=== PATIENT | female | born 1985 | race Caucasian/White ===

== ENCOUNTER 2023-10-23 06:32 | Outpatient (RCR) | payer BC, SELFPAY | END 2023-10-23 23:59 | disposition home or self-care (01) | LOC: RPT 06:32 | PROVIDERS: ATTENDING PHYSICIAN Surgery; FAMILY PHYSICIAN Nurse Practitioner Family | DX: K59.00 Constipation, unspecified (principal); N81.10 Cystocele, unspecified; N81.6 Rectocele; M62.89 Other specified disorders of muscle; Z73.6 Limitation of activities due to disability | CPT/HCPCS: 97163; 97530 ==

== ENCOUNTER 2023-11-23 11:56 | Outpatient (RCR) | payer BC, SELFPAY | END 2023-11-23 23:59 | disposition home or self-care (01) | LOC: RPT 11:56 | PROVIDERS: ATTENDING PHYSICIAN Surgery; FAMILY PHYSICIAN Nurse Practitioner Family | DX: K59.00 Constipation, unspecified (principal); N81.6 Rectocele; N81.10 Cystocele, unspecified; M62.89 Other specified disorders of muscle; Z73.6 Limitation of activities due to disability | CPT/HCPCS: 97112; 97140; 97530 ==

== ENCOUNTER → 2023-11-30 11:37 | Outpatient (REF) | payer BC, SELFPAY | LOC: RAD 11:37 | PROVIDERS: ATTENDING PHYSICIAN Surgery; FAMILY PHYSICIAN Nurse Practitioner Family | DX: K59.01 Slow transit constipation (principal) | CPT/HCPCS: 74018 ==

== ENCOUNTER 2023-12-18 14:01 | Outpatient (RCR) | payer BC, SELFPAY | END 2023-12-18 23:59 | disposition home or self-care (01) | LOC: RPT 14:01 | PROVIDERS: ATTENDING PHYSICIAN Surgery; FAMILY PHYSICIAN Nurse Practitioner Family | DX: K59.00 Constipation, unspecified (principal); N81.10 Cystocele, unspecified; N81.6 Rectocele; M62.89 Other specified disorders of muscle; Z73.6 Limitation of activities due to disability | CPT/HCPCS: 97110; 97112; 97140; 97530 ==

== ENCOUNTER → 2023-12-25 12:43 | Outpatient (REF) | payer BC, SELFPAY | LOC: RAD 12:43 | PROVIDERS: ATTENDING PHYSICIAN Obstetrics & Gynecology; FAMILY PHYSICIAN Nurse Practitioner Family | DX: N81.2 Incomplete uterovaginal prolapse (principal) | CPT/HCPCS: 76830; 76856 ==

== ENCOUNTER 2024-01-01 10:10 | Inpatient (IN) | payer BC, SELFPAY ==
[2023-12-25 12:41] VITALS: BMI 19.5
[2023-12-25 14:30] LABS: Hematocrit 38.3 % (37.0-47.0); Hemoglobin 12.5 g/dL (12.0-16.0); Mean Corp Hgb Conc. 32.6 g/dL (33.0-37.0); Mean Corpuscular Hgb 31.2 pg (27.0-31.0); Mean Corpuscular Volume 95.5 fL (81.0-99.0); Mean Platelet Volume 11.1 fL (7.4-10.4); Platelet Count 268 10^3/uL (130-400); Red Blood Cell Count 4.01 10^6/uL (4.20-5.40); Red Cell Dist. Width 13.2 % (11.5-14.5); White Blood Cell Count 6.5 10^3/uL (4.8-10.8)
[2023-12-25 15:16] LABS: Blood Urea Nitrogen 9 mg/dl (7-17); Calcium 9.3 mg/dl (8.4-10.2); Carbon Dioxide 27 mmol/L (22-30); Chloride 103 mmol/L (98-107); Estimated Creatinine Clearance 119 ml/min; Glucose 72 mg/dl (70-99); Sodium 141 mmol/L (135-145); eGFR > 60.00
[2023-12-26 10:54] LABS: ALT (SGPT) 28 U/L (0-35); AST (SGOT) 27 U/L (14-36); Albumin 4.8 g/dl (3.5-5.0); Alkaline Phosphatase 61 U/L (38-126); Total Bilirubin 0.4 mg/dl (0.2-1.3); Total Protein 7.3 g/dl (6.3-8.2)
[2024-01-01] VITALS (8 sets, daily range): BP systolic 89–111; BP diastolic 52–68; BMI 19.5; BMI 18.9
[2024-01-01 11:40] LABS: APTT 30.1 Sec (23.4-35.0); INR 1.09
[2024-01-01] MEDS: TYLENOL 1000 MG PO (13:53)
[2024-01-01] MEDS: ENTEREG 12 MG PO (13:53)
[2024-01-01] MEDS: Pyridium 200 MG PO (13:53)
[2024-01-01] MEDS: NORMOSOL-R 1000 IV ×2 (13:53→22:07)
[2024-01-01] MEDS: TRANSDERM-SCOP 1 PATCH TRANSDERM (13:54)
[2024-01-01] MEDS: HEPARIN 5000 UNITS SC (13:56)
--- NOTE | 2024-01-01 19:50 | W.IMMPOSTOP ---
Surgical Immed Post Op Note
-
Primary Surgeon: Braxton Goodrich MD
Pmo Manager: KATARINA Miller
Urogynecologist: Colin Guevara MD
Pre-op Diagnosis: Pelvic floor prolapse/chronic constipation
Post-op Diagnosis: Same
Procedure Performed: Robotic sigmoid resection and ventral rectopexy with mesh (Dr. Goodrich)
Robotic hysterectomy, sacroculpopexy, cystoscopy and posterior repair (Dr. Guevara)
Anesthesia Type: GET
Specimen / Cultures: Sigmoid colon (suture is proximal)
Uterus
Estimated Blood Loss: 30cc
Complications: None
Operative Findings: Pelvic floor prolapse
Redundant sigmoid colon
28mm EEA
Normal leak test
Phasix mesh for both repairs
Normal cystoscopy
Patient's updated.
--- NOTE | 2024-01-01 20:03 | W.SUR.POST ---
Surgical Immediate Post Op
Note
Pre Op Diagnosis: Pelvic organ prolapse
Post Op Diagnosis: Pelvic organ prolapse
Procedure Performed: Robotic total hysterectomy, bilateral salpingecotmy, sacrocolpopexy, posterior colporrhaphy with perineoplasty, cystoscopy
Primary Surgeon: Colin Guevara MD
Anesthesia: General anesthesia with ET tube
Estimated Blood Loss: 30cc
Complications: None
Operative Findings: Advanced stage pelvic organ prolapse
[2024-01-01] MEDS: TYLENOL 650 MG PO (21:56)
--- NOTE | 2024-01-01 22:00 | PTCARENOTE ---
Pt arrived to unit from PACU and is AAOx3, 5/10 pain throughout abdomen. Scheduled Tylenol provided to pt. Graham at bedside; pt and spouse updated on plan of care. BP on admission 93/53, HR 84, pt is AAOx3, drowsy but verbally arousable.
[2024-01-01] MEDS: ZOFRAN 4 MG IV (22:07)
[2024-01-02] VITALS (7 sets, daily range): BP systolic 90–108; BP diastolic 54–71; BMI 18.6
[2024-01-02] MEDS: TYLENOL PO (00:36)
[2024-01-02] MEDS: TORADOL 15 MG IV ×4 (02:44→20:48)
[2024-01-02] MEDS: TYLENOL 650 MG PO ×5 (04:08→20:48)
[2024-01-02] MEDS: NORMOSOL-R 1000 IV (06:16)
--- NOTE | 2024-01-02 07:41 | W.PN.GYN ---
Today's Communication / Plan
-
1. D/c huff catheter
Physician Note
-
Assessment and Plan:
38 yo woman presents for POD 1 s/p Robotic total laparoscopic hysterectomy, bilateral salpingectomy, sacrocolpopexy, posterior colporrhaphy with perineoplasty and cystoscopy and bowel resection with rectopexy (Dr. Goodrich): doing well postop and
meeting postop milestones.
1. Postoperative care
-Vaginal packing removed this morning on rounds
-Huff catheter in place: discussed with bedside RN to remove when patient is ambulatory today
-Diet: per colorectal surgery recommendations
-Ambulate and SCDs for DVT ppx
-CBC and BMP pending
Subjective:
no acute complaints, pain well controlled, denies nausea or vomiting overnight. has not ambulated. denies fevers/chills, nausea/vomiting, chest pain, sob.
Objective:
Intake and Output
12/31/23 01/01/24 01/02/24 01/03/24
06:59 06:59 06:59 06:59
Intake Total 960 / 960
Output Total 850 / 850
Balance 110 / 110
Intake:
Oral fluids 60 / 60
IV fluids (Total) 900 / 900
normosol 100 / 100
Output:
Urine, Huff 850 / 850
Vital Signs
Temp Pulse Resp BP Pulse Ox
98 F 92 14 108/64 97
01/02/24 03:42 01/02/24 03:42 01/02/24 03:42 01/02/24 03:42 01/02/24 03:42
Exam:
Abdomen: soft, nontender, nondistended
: minimal spotting
LE: nontender, no swelling, no erythema
[2024-01-02 08:09] LABS: Blood Urea Nitrogen 10 mg/dl (7-17); Calcium 8.3 mg/dl (8.4-10.2); Carbon Dioxide 19 mmol/L (22-30); Chloride 107 mmol/L (98-107); Estimated Creatinine Clearance 117 ml/min; Glucose 87 mg/dl (70-99); Potassium 4.4 mmol/L (3.5-5.1); Sodium 136 mmol/L (135-145); eGFR > 60.00
[2024-01-02] MEDS: ZOLOFT 200 MG PO (08:36)
[2024-01-02 09:18] LABS: % Basophils 0.1 % (0-2); % Immature Granulocytes 0.4 % (0-0.5); % Lymphocytes 11.8 % (20.5-51.1); % Monocytes 10.8 % (1.7-9.3); % Neutrophils 76.9 % (42.2-75.2); Absolute Lymphocytes 1.3 10^3/uL (1.2-3.4); Absolute Monocytes 1.2 10^3/uL (0.1-0.6); Absolute Neutrophils 8.2 10^3/uL (1.4-6.5); Hematocrit 31.9 % (37.0-47.0); Hemoglobin 10.7 g/dL (12.0-16.0); Mean Corp Hgb Conc. 33.5 g/dL (33.0-37.0); Mean Corpuscular Volume 92.5 fL (81.0-99.0); Mean Platelet Volume 10.8 fL (7.4-10.4); Nucleated Red Blood Cells % 0 %; Platelet Count 226 10^3/uL (130-400); Red Blood Cell Count 3.45 10^6/uL (4.20-5.40); Red Cell Dist. Width 13.2 % (11.5-14.5); White Blood Cell Count 10.6 10^3/uL (4.8-10.8)
[2024-01-02] MEDS: ENTEREG 12 MG PO ×2 (09:36→20:48)
[2024-01-02] MEDS: ZOFRAN 4 MG IV (09:55)
--- NOTE | 2024-01-02 12:15 | W.PN.CRS1 ---
Today's Communication / Plan
-
fulls
lovenox
Assessment/Plan
-
POD#1 Robotic sigmoid resection and ventral rectopexy with mesh, Robotic hysterectomy, sacroculpopexy, cystoscopy and posterior repair
1. Vitals normal. Labs normal.
2. OOB as tolerated.
3. Advance diet to full liquids.
4. OR pathology pending.
5. Start on Lovenox for DVT prophylaxis.
6. OR pathology pending.
7. Await void post huff removal.
8. D/C IVfs when tolerating po.
Subjective Data
Procedure
01/02/2024 -Robotic sigmoid resection and ventral rectopexy with mesh (Dr. Goodrich)
Robotic hysterectomy, sacroculpopexy, cystoscopy and posterior repair (Dr. Guevara)
Subjective Data
Date of Service: January 02, 2024
Patient states she feels well. Her pain is controlled. She has no nausea or vomiting. She plus flatus after she saw Dr. Goodrich this morning. Her Huff was discontinued and she has not urinated yet.
Objective Data
-
Vital Signs
Temp Pulse Resp BP Pulse Ox
98.2 F 90 16 101/66 98
01/02/24 07:20 01/02/24 07:20 01/02/24 07:20 01/02/24 07:20 01/02/24 08:35
Intake & Output
01/01/24 01/02/24 01/03/24
06:59 06:59 06:59
Intake Total 960 / 960
Output Total 850 / 850 600 / 600
Balance 110 / 110 -600 / -600
Intake:
Oral fluids 60 / 60
IV fluids (Total) 900 / 900
normosol 100 / 100
Output:
Urine, Huff 850 / 850 600 / 600
Lab Results
01/02/24 07:05
01/02/24 07:05
Physical Exam
-
General: No Acute Distress and AOx3
Abdomen: Soft, Non Distended and Non Tender
Skin: Warm and Dry
Incision: Clear, Dry, Intact
[2024-01-02] MEDS: NORMOSOL-R IV (13:16)
--- NOTE | 2024-01-02 16:04 | CM ---
Patient seen bedside.
IA
patient lives with spouse and children in a 2 story home.
Independent prior to admission.
Drives.
No home care needs anticipated.
PCP: Dr Aggarwal
Pharmacy [facility]
Plan: home no needs.
[2024-01-02] MEDS: LOVENOX 40 MG SC (17:18)
[2024-01-02] MEDS: FLUSH (NSS) 2 FLUSH IV (20:50)
[2024-01-03] VITALS: BP 95/58
[2024-01-03] MEDS: TYLENOL PO (01:03)
[2024-01-03] MEDS: NORMOSOL-R IV (02:12)
[2024-01-03] MEDS: TORADOL 15 MG IV ×3 (02:18→13:18)
[2024-01-03] MEDS: FLUSH (NSS) 2 FLUSH IV (02:19)
[2024-01-03] MEDS: TYLENOL 650 MG PO ×3 (02:20→13:17)
[2024-01-03 07:50] VITALS: BP 90/57
--- NOTE | 2024-01-03 07:54 | W.PN.GYN ---
Today's Communication / Plan
-
1. continue advancing diet per colorectal surgery
2. possible d/c tomorrow
Physician Note
-
Assessment and Plan:
38 yo woman presents for POD2 s/p Robotic total laparoscopic hysterectomy, bilateral salpingectomy, sacrocolpopexy, posterior colporrhaphy with perineoplasty and cystoscopy and sigmoid resection with rectopexy (Dr. Goodrich): doing well postop and
meeting postop milestones.
1. Postoperative care
-Vaginal packing removed on POD 1
-Normal vaginal bleeding/spotting
-Ordonez catheter removed on POD 1
-Diet: per colorectal surgery recommendations
-Ambulate and SCDs for DVT ppx
-CBC and BMP: WNL on POD 1
-IV is hep locked
Subjective:
no acute complaints, pain well controlled, denies nausea or vomiting overnight. tolerating liquid diet. ambulating in hallway without assistance. voiding normally. denies fevers/chills, nausea/vomiting, chest pain, sob.
Objective:
Intake and Output
01/01/24 01/02/24 01/03/24 01/04/24
06:59 06:59 06:59 06:59
Intake Total 960 / 960 960 / 960
Output Total 850 / 850 1940 / 1940
Balance 110 / 110 -980 / -980
Intake:
Oral fluids 60 / 60 960 / 960
IV fluids (Total) 900 / 900
normosol 100 / 100
Output:
Urine, Ordonez 850 / 850 1200 / 1200
Urine, Voided 740 / 740
Other:
Number of approximated MODERATE 2
amounts of urine
Vital Signs
Temp Pulse Resp BP Pulse Ox
98.1 F 80 16 90/57 100
01/03/24 07:50 01/03/24 07:50 01/03/24 07:50 01/03/24 07:50 01/03/24 07:50
Lab Results
01/02/24 07:05
01/02/24 07:05
Exam
Incisions: clean, dry, intact
: minimal spotting
Lower extrem: nontender, no swelling, no erythema
Abdomen: soft, nontender, nondistended
[2024-01-03] MEDS: ENTEREG 12 MG PO (08:32)
[2024-01-03] MEDS: ZOLOFT 200 MG PO (08:33)
[2024-01-03] MEDS: ZOFRAN 4 MG IV (08:42)
--- NOTE | 2024-01-03 09:08 | W.PN.CRS1 ---
Today's Communication / Plan
-
low residue
possible d/c after lunch
Assessment/Plan
-
POD#2 Robotic sigmoid resection and ventral rectopexy with mesh, Robotic hysterectomy, sacroculpopexy, cystoscopy and posterior repair
1. Vitals normal.
2. OOB as tolerated.
3. Advance diet to low residue
4. OR pathology pending.
5. Lovenox for DVT prophylaxis.
6. OR pathology pending.
7. Okay for discharge after lunch if she tolerates a low residue diet. All discharge instructions discussed with patient. All questions answered. Follow-up in the office with Dr. Goodrich in 2 weeks.
Subjective Data
Procedure
01/02/2024 -Robotic sigmoid resection and ventral rectopexy with mesh (Dr. Goodrich)
Robotic hysterectomy, sacroculpopexy, cystoscopy and posterior repair (Dr. Guevara)
Subjective Data
Date of Service: January 03, 2024
She patient states she feels well. She had a nice night sleep. She has loose stools. She is tolerating food but she is not that hungry. Her pain is well-controlled. She has no complaints.
Objective Data
-
Vital Signs
Temp Pulse Resp BP Pulse Ox
98.1 F 80 16 90/57 100
01/03/24 07:50 01/03/24 07:50 01/03/24 07:50 01/03/24 07:50 01/03/24 07:50
Intake & Output
01/02/24 01/03/24 01/04/24
06:59 06:59 06:59
Intake Total 960 / 960 960 / 960
Output Total 850 / 850 1940 / 1940
Balance 110 / 110 -980 / -980
Intake:
Oral fluids 60 / 60 960 / 960
IV fluids (Total) 900 / 900
normosol 100 / 100
Output:
Urine, Ordonez 850 / 850 1200 / 1200
Urine, Voided 740 / 740
Other:
Number of approximated MODERATE 2
amounts of urine
Lab Results
01/02/24 07:05
01/02/24 07:05
Physical Exam
-
General: No Acute Distress and AOx3
Abdomen: Soft, Non Distended and Non Tender
Skin: Warm and Dry
Incision: Clear, Dry, Intact
--- NOTE | 2024-01-03 12:32 | CM ---
Met with patient and her spouse at the bedside to discuss discharge plan
Plan: discharge to home today; no needs; will transport home
[2024-01-03 13:57] VITALS: BP 96/54
[2024-01-03 14:57] VITALS: BP 96/54
--- NOTE | 2024-01-07 12:23 | W.DCSUMMARY ---
Discharge Summary
Discharge Data
Date of Admission: 01/01/24
Date of Discharge: 01/03/24
-
Pending Results: Yes
Hospital Course
38-year-old female presented for an elective robotic sigmoid resection ventral rectopexy with mesh by Dr. Braxton Goodrich and a robotic hysterectomy, sacroculpopexy, cystoscopy and posterior repair by Dr. Guevara on 01/01/2024. She tolerated the
procedure well. The following day her diet was advanced to full liquids she was started on Lovenox for DVT prophylaxis her Ordonez was discontinued and she voided without difficulty. On postop day 2 she was started on a low residue diet. Her pain
was well-controlled. Started the patient to be discharged to home. All discharge instructions were discussed the patient medications activity levels and wound care. All questions were answered.
Discharge Plan
-
Patient Disposition: Home (Routine Discharge)
Discharge Diagnosis/Procedures: Robotic sigmoid resection and ventral rectopexy with mesh (Dr. Goodrich)
Robotic hysterectomy, sacroculpopexy, cystoscopy and posterior repair (Dr. Guevara)
Diet: Low Residue
Activity: No strenuous activity
Additional Activity: No lifting over 10 pounds.
Driving Restrictions: No driving for 1 week
Bathing Restrictions: OK to Shower
Wound Care: Allow glue to naturally fall off. Do not pick at incisions.
Instructions: Low Fiber Diet
Referrals:
Anthony Goodrich MD [Active] - 01/17/24 9:45 am
Aung Aggarwal CRNP [Family Provider] -
Additional Discharge Medication Instructions: Tylenol or Toradol as needed for pain. Maximum dose of Tylenol is 4000 mg 24 hours. Maximum dose of ibuprofen is 3200 mg 24 hours.
Prescriptions:
New
oxycodone 5 mg tablet
5 mg PO Q6H PRN (Reason: Pain) Qty: 20 0RF
Continued
sertraline 100 mg Tablet
200 mg PO DAILY
ondansetron 4 mg Tablet,Disintegrating
4 mg PO Q6H PRN (Reason: nausea)
Ubrelvy
100 mg PO PRN PRN (Reason: migraines)
ibuprofen 600 MG tablet
200 mg PO Q6HPRN PRN (Reason: moderate pain/cramps)
clonazepam 0.5 mg Tablet
0.5 - 1 mg PO HS
lisdexamfetamine [Vyvanse] 40 mg Capsule
40 mg PO DAILY
Discontinued
Linzess
72 mcg PO PRN PRN (Reason: constipation )
polyethylene glycol 3350 [Miralax] 17 gram Powder In Packet
17 g PO DAILY
metronidazole [Flagyl] 500 mg Tablet
500 mg PO .PERPROTOCOL
neomycin 500 mg Tablet
500 mg PO .PERPROTOCOL
Patient Comments:
took at 1400,1500,and 2200 on 12/31/23
lubiprostone 24 mcg Capsule
24 mcg PO DAILY
Sutab 1.479-0.188- 0.225 gram Tablet
0 tab PO PER PKG DIR
Discharge Orders:
Discharge Patient (As Directed); Ordered 01/03/24
Ordered By: Mayra Gallagher
Discharge Date and Time
Discharge Date/Time: 01/03/24 14:50
Print Language: GREEK
== END 2024-01-03 14:50 | disposition home or self-care (01) | DRG 742 ==
LOC: 4 WEST ACU 10:10
PROVIDERS: ADMITTING PHYSICIAN Obstetrics & Gynecology; ATTENDING PHYSICIAN Surgery; FAMILY PHYSICIAN Nurse Practitioner Family
PROC: 8E0W4CZ Robotic Assisted Procedure of Trunk Region, Percutaneous Endoscopic Approach (ICD-10-PCS; 2024-01-01)
PROC: 0JUC3JZ Supplement of Pelvic Region Subcutaneous Tissue and Fascia with Synthetic Substitute, Percutaneous Approach (ICD-10-PCS; 2024-01-01)
PROC: 0TJB8ZZ Inspection of Bladder, Via Natural or Artificial Opening Endoscopic (ICD-10-PCS; 2024-01-01)
PROC: 0DBN4ZZ Excision of Sigmoid Colon, Percutaneous Endoscopic Approach (ICD-10-PCS; 2024-01-01)
PROC: 0HQ9XZZ Repair Perineum Skin, External Approach (ICD-10-PCS; 2024-01-01)
PROC: 0UT74ZZ Resection of Bilateral Fallopian Tubes, Percutaneous Endoscopic Approach (ICD-10-PCS; 2024-01-01)
PROC: 0USG4ZZ Reposition Vagina, Percutaneous Endoscopic Approach (ICD-10-PCS; 2024-01-01)
PROC: 0DUP4JZ Supplement Rectum with Synthetic Substitute, Percutaneous Endoscopic Approach (ICD-10-PCS; 2024-01-01)
PROC: 0UT94ZZ Resection of Uterus, Percutaneous Endoscopic Approach (ICD-10-PCS; 2024-01-01)
PROC: 0DSP4ZZ Reposition Rectum, Percutaneous Endoscopic Approach (ICD-10-PCS; 2024-01-01)
DX: N81.89 Other female genital prolapse (principal); Q43.8 Other specified congenital malformations of intestine; N81.2 Incomplete uterovaginal prolapse; N39.8 Other specified disorders of urinary system; R33.9 Retention of urine, unspecified; K62.3 Rectal prolapse
CPT/HCPCS: 88305; 88307; 36415; 80048; 80053; 85025; 85027; 85610; 85730; 86850; 86900; 86901; 87070; 93005; J1335

== ENCOUNTER 2024-01-22 13:13 | Outpatient (RCR) | payer BC, SELFPAY | END 2024-01-22 23:59 | disposition home or self-care (01) | LOC: RPT 13:13 | PROVIDERS: ATTENDING PHYSICIAN Surgery; FAMILY PHYSICIAN Nurse Practitioner Family | DX: K59.00 Constipation, unspecified (principal); N81.10 Cystocele, unspecified; N81.6 Rectocele; M62.89 Other specified disorders of muscle; Z73.6 Limitation of activities due to disability | CPT/HCPCS: 97112; 97140; 97164 ==

== ENCOUNTER 2024-02-12 10:09 | Outpatient (RCR) | payer BC, SELFPAY | END 2024-02-12 23:59 | disposition home or self-care (01) | LOC: RPT 10:09 | PROVIDERS: ATTENDING PHYSICIAN Surgery; FAMILY PHYSICIAN Nurse Practitioner Family | DX: K59.00 Constipation, unspecified (principal); N81.10 Cystocele, unspecified; N81.6 Rectocele; M62.89 Other specified disorders of muscle; Z73.6 Limitation of activities due to disability | CPT/HCPCS: 97110; 97140 ==

== ENCOUNTER 2024-03-18 10:01 | Outpatient (RCR) | payer BC, SELFPAY | END 2024-03-18 23:59 | disposition home or self-care (01) | LOC: RPT 10:01 | PROVIDERS: ATTENDING PHYSICIAN Surgery; FAMILY PHYSICIAN Nurse Practitioner Family | DX: K59.00 Constipation, unspecified (principal); N81.10 Cystocele, unspecified; N81.6 Rectocele; M62.89 Other specified disorders of muscle; Z73.6 Limitation of activities due to disability | CPT/HCPCS: 97140; 97530 ==

== ENCOUNTER 2024-04-15 09:01 | Outpatient (RCR) | payer BC, SELFPAY | END 2024-04-15 23:59 | disposition home or self-care (01) | LOC: RPT 09:01 | PROVIDERS: ATTENDING PHYSICIAN Surgery | DX: K59.00 Constipation, unspecified (principal); N81.10 Cystocele, unspecified; N81.6 Rectocele; M62.89 Other specified disorders of muscle; Z73.6 Limitation of activities due to disability | CPT/HCPCS: 97014; 97112; 97140; 97530 ==

== ENCOUNTER 2024-05-06 10:00 | Outpatient (RCR) | payer BC, SELFPAY | END 2024-05-06 23:59 | disposition home or self-care (01) | LOC: RPT 10:00 | PROVIDERS: ATTENDING PHYSICIAN Surgery | DX: K59.00 Constipation, unspecified (principal); N81.10 Cystocele, unspecified; N81.6 Rectocele; M62.89 Other specified disorders of muscle; Z73.6 Limitation of activities due to disability | CPT/HCPCS: 97112; 97530 ==

== ENCOUNTER → 2024-12-19 12:54 | Outpatient (REF) | payer BC, SELFPAY ==
[2024-12-19 13:11] LABS: Hematocrit 40.2 % (37.0-47.0); Hemoglobin 13.6 g/dL (12.0-16.0); Mean Corp Hgb Conc. 33.8 g/dL (33.0-37.0); Mean Corpuscular Hgb 31.2 pg (27.0-31.0); Mean Corpuscular Volume 92.2 fL (81.0-99.0); Mean Platelet Volume 10.4 fL (7.4-10.4); Platelet Count 233 10^3/uL (130-400); Red Blood Cell Count 4.36 10^6/uL (4.20-5.40); Red Cell Dist. Width 12.3 % (11.5-14.5); White Blood Cell Count 6.3 10^3/uL (4.8-10.8)
[2024-12-19 13:47] LABS: Blood Urea Nitrogen 11 mg/dl (7-17); Calcium 9.8 mg/dl (8.4-10.2); Carbon Dioxide 28 mmol/L (22-30); Chloride 104 mmol/L (98-107); Glucose 97 mg/dl (70-99); Potassium 4.2 mmol/L (3.5-5.1); Sodium 140 mmol/L (135-145); eGFR > 60.00
== END ==
LOC: REG 12:54
PROVIDERS: ATTENDING PHYSICIAN Nurse Practitioner; FAMILY PHYSICIAN Internal Medicine
DX: R35.0 Frequency of micturition (principal)
CPT/HCPCS: 36415; 80048; 85027

== ENCOUNTER → 2025-06-01 07:48 | Outpatient (REF) | payer BC, SELFPAY | LOC: MRI 07:48 | PROVIDERS: ATTENDING PHYSICIAN Internal Medicine; FAMILY PHYSICIAN Internal Medicine | DX: K59.4 Anal spasm (principal); N81.89 Other female genital prolapse; K92.1 Melena; R10.13 Epigastric pain | CPT/HCPCS: 72197; 74183; A9575 ==